=== PATIENT | female | born 1965 | race African-American/Black ===

== ENCOUNTER 2023-03-26 10:13 | Day surgery (SDC) | payer BC ==
[~2023-03-26] VITALS: Ht 167.6 cm; Wt 77.2 kg
[~2023-03-26 10:13] MED LIST: LR 1,000 ML IV SCH; Ondansetron 4 MG/2 ML VIAL IV PRN
[2023-03-26 10:47] VITALS: BP 153/109; PULSE 113; TEMP 98
[2023-03-26] MEDS ORDERED: LIPITOR 80MG80 MG PO (10:50)
[2023-03-26] MEDS ORDERED: TYLENOL 325MG325 MG PO (10:50)
[2023-03-26] MEDS ORDERED: CARDIZEM CD 24240 MG PO (10:51)
[2023-03-26] MEDS ORDERED: BUSPAR5 MG PO (10:51)
[2023-03-26] MEDS ORDERED: PRINIVIL20 MG PO (10:52)
[2023-03-26] MEDS ORDERED: PRINZIDE 25 MG-1 TAB PO (10:52)
[2023-03-26] MEDS ORDERED: CYMBALTA 60MG60 MG PO (10:52)
[2023-03-26] MEDS ORDERED: SINGULAIR 110 MG/TAB PO (10:53)
[2023-03-26] MEDS ORDERED: PROTONIX 40MG T40 MG PO (10:53)
[2023-03-26] MEDS ORDERED: KLOR-CON20 MEQ PO (10:54)
[2023-03-26] MEDS ORDERED: INDERAL LA120 MG PO (10:55)
[2023-03-26] MEDS ORDERED: ULTRAM 50MG TAB50 MG PO (10:55)
[2023-03-26] MEDS ORDERED: VITAMIN B1 50 MG PO (10:56)
--- NOTE | 2023-03-26 10:58 | NUR ---
Pt arrived with , bowels WNL and liquid, VSS, 20G PIV placed to RLFA with LR hanging; consents reviewed and signed, no questions/concerns; reviewed meds/history/pharm/allergies.
[2023-03-26] MEDS ORDERED: Lidocaine PF 2% (20 MG/ML) 5 ML VIAL ONE (11:26)
[2023-03-26 11:50] VITALS: BP 129/92; PULSE 111; TEMP 97.5
--- NOTE | 2023-03-26 11:50 | NUR ---
The patient arrived back to [facility] from the endoscopy suite at this time. The patient appears alert and oriented and ambulated from the cart to the recliner in her room and appeared to tolerate the activity well. The patient agrees to try some apple juice and a blueberry muffin. is at her bedside at this time. Post procedure vital signs were started at this time. Call light is within reach. The patient denies any further needs at this time.
[2023-03-26 12:05] VITALS: BP 124/94; PULSE 100
--- NOTE | 2023-03-26 12:10 | NUR ---
Discharge instructions were reviewed with the patient and her at this time. They both verbalized and have no questions for the nurse at this time. Dr. Langford has been in to speak with the patient regarding the findings of the procedures. IV to her right anecubital was removed and a pressure dressing was applied to the site. The patient was instructed to get dressed and notify the staff when she is ready to be escorted out.
--- NOTE | 2023-03-26 12:23 | NUR ---
The patient was escorted out via wheelchair to a private vehicle by TAMMY Flores. The patient's belongings and discharge paperwork were sent with her. The patient's is present to drive her home.
== END 2023-03-26 12:23 | disposition home or self-care (01) ==
LOC: SDCO 10:13
DX: K20.90 Esophagitis, unspecified without bleeding (principal); K57.30 Diverticulosis of large intestine without perforation or abscess without bleeding; M54.50 Low back pain, unspecified; M25.552 Pain in left hip; R19.7 Diarrhea, unspecified; R10.84 Generalized abdominal pain; R93.5 Abnormal findings on diagnostic imaging of other abdominal regions, including retroperitoneum; R63.4 Abnormal weight loss; R63.5 Abnormal weight gain; R93.3 Abnormal findings on diagnostic imaging of other parts of digestive tract; R10.32 Left lower quadrant pain; F17.210 Nicotine dependence, cigarettes, uncomplicated; Z68.27 Body mass index [BMI] 27.0-27.9, adult
CPT/HCPCS: J2704; J7120